=== PATIENT | male | born 1960 | race Two or more races ===

== ENCOUNTER 2024-05-13 14:43 | Emergency (ER) | payer OTHER ==
[~2024-05-13] VITALS: Ht 167.6 cm; Wt 67.7 kg
[2024-05-13] MEDS ORDERED: HYDROcodone-ACET 5/325MG TAB PO ONE (15:30)
[2024-05-13 16:08] LABS: Basophils # (auto) 0 10 ^3/uL (0-0.2); Basophils % (auto) 0.6 % (0.0-2.0); Eosinophils # (auto) 0 10 ^3/uL (0-0.8); Eosinophils % (auto) 0.2 % (0.0-7.0); Hematocrit 43.9 % (41.0-53.0); Hemoglobin 15.3 g/dL (13.5-17.5); Lymphocytes # (auto) 1.6 10 ^3/uL (0.4-5.4); Lymphocytes % (auto) 28.7 % (10.0-50.0); Mean Corpuscular Hemoglobin 30.4 pg (28.0-32.0); Mean Corpuscular Hgb Conc. 34.9 g/dL (32.0-36.0); Mean Corpuscular Volume 87.2 fL (80.0-100.0); Monocytes # (auto) 0.5 10 ^3/uL (0-1.3); Monocytes % (auto) 8.1 % (0.0-12.0); Neutrophils # (auto) 3.5 10 ^3/uL (1.6-8.6); Neutrophils % (auto) 62.4 % (37.0-80.0); Nucleated Red Blood Cells % 0.1 %; Red Blood Cells 5.04 10^6/uL (4.5-5.90); Red Cell Distribution Width 14.8 % (11.8-14.3); White Blood Cell 5.6 10^3/uL (4.4-10.8)
[2024-05-13 16:22] LABS: Chloride 105 mmol/L (98-107); Potassium 3.6 mmol/L (3.5-5.1); Sodium 138 mmol/L (136-145)
[2024-05-13 16:23] LABS: Anion Gap 7 (5-15); Carbon Dioxide 26 mmol/L (20-30)
[2024-05-13 16:28] LABS: BUN/Creatinine Ratio 9.1 (10.0-20.0); Blood Urea Nitrogen 9 mg/dL (9-23); Glucose 97 mg/dL (74-106)
[2024-05-13] MEDS: MECLIZINE HCL 25 MG TAB PO ONE (16:55)
[2024-05-13] MEDS: KETOROLAC TROMETH 30 MG/ML 1ML VIAL IM ONE (16:56)
[2024-05-13] MEDS ORDERED: VALA500T33 PO (17:00)
[2024-05-13] MEDS ORDERED: IBUP-1455 PO (17:00)
[2024-05-13 17:01] VITALS: BP 148/95; PULSE 78; RESP 18; TEMP 98; O2SAT 100
[2024-05-13] MEDS ORDERED: MECL1TAB42 PO (17:03)
[2024-05-13] MEDS ORDERED: ACE3T PO (17:11)
== END 2024-05-13 18:05 | disposition home or self-care (01) ==
LOC: ER 14:43
DX: B02.9 Zoster without complications (principal); R42 Dizziness and giddiness; Z79.899 Other long term (current) drug therapy
CPT/HCPCS: 36415; 80048; 83605; 85025; 93005; 96372; 99284; J1885; J8597

== ENCOUNTER 2024-06-07 07:22 | Emergency (ER) | payer OTHER ==
[~2024-06-07] VITALS: Ht 167.6 cm; Wt 64.0 kg
[~2024-06-07 07:22] MED LIST: ACE3T PO; IBUP-1455 PO; MECL1TAB42 PO; VALA500T33 PO
[2024-06-07 07:48] LABS: Basophils # (auto) 0 10 ^3/uL (0-0.2); Basophils % (auto) 0.5 % (0.0-2.0); Eosinophils # (auto) 0 10 ^3/uL (0-0.8); Eosinophils % (auto) 0.8 % (0.0-7.0); Hemoglobin 14.5 g/dL (13.5-17.5); Monocytes # (auto) 0.3 10 ^3/uL (0-1.3); Nucleated Red Blood Cells % 0.1 %; White Blood Cell 5.1 10^3/uL (4.4-10.8)
[2024-06-07 07:51] LABS: Hematocrit 41.1 % (41.0-53.0); Lymphocytes % (auto) 20.3 % (10.0-50.0); Mean Corpuscular Hemoglobin 31.5 pg (28.0-32.0); Mean Corpuscular Hgb Conc. 35.3 g/dL (32.0-36.0); Mean Corpuscular Volume 89.2 fL (80.0-100.0); Neutrophils # (auto) 3.7 10 ^3/uL (1.6-8.6); Neutrophils % (auto) 72.4 % (37.0-80.0); Red Cell Distribution Width 14.7 % (11.8-14.3)
[2024-06-07 08:21] LABS: Alanine Aminotransferase 33 U/L (7-40); Albumin 4.6 g/dL (3.2-4.8); Alkaline Phosphatase 79 U/L (46-116); Anion Gap 6 (5-15); Aspartate Aminotransferase 27 U/L (13-40); Blood Urea Nitrogen 9 mg/dL (9-23); Carbon Dioxide 27 mmol/L (20-30); Chloride 105 mmol/L (98-107); Glucose 125 mg/dL (74-106); Magnesium 2.2 mg/dL (1.6-2.6); Potassium 3.2 mmol/L (3.5-5.1); Sodium 138 mmol/L (136-145)
[2024-06-07 08:22] LABS: Bilirubin, Total 0.8 mg/dL (0.2-1.0); Total Protein 7.6 g/dL (5.7-8.2)
[2024-06-07] MEDS: LORazepam 2MG/ML-1ML VIAL IV ONE (08:45)
[2024-06-07 08:55] VITALS: PULSE 93; RESP 12; TEMP 97.8; O2SAT 99
[2024-06-07 09:04] LABS: Free T3 3.81 pg/mL (2.3-4.2)
[2024-06-07 09:05] LABS: Free T4 (Free Thyroxine) 1.35 ng/dL (0.89-1.76)
[2024-06-07] MEDS ORDERED: LORA-1121 PO (10:46)
[2024-06-07 10:56] VITALS: BP 124/82; PULSE 93; RESP 20; O2SAT 99
== END 2024-06-07 11:05 | disposition home or self-care (01) ==
LOC: ER 07:22
DX: F41.9 Anxiety disorder, unspecified (principal); E86.0 Dehydration; T42.6X5A Adverse effect of other antiepileptic and sedative-hypnotic drugs, initial encounter; Y92.9 Unspecified place or not applicable
CPT/HCPCS: 36415; 71045; 80053; 83735; 83880; 84439; 84443; 84481; 84484; 85025; 93005; 96374; 99285; J2060

== ENCOUNTER 2024-06-20 09:00 | Emergency (ER) | payer OTHER ==
[~2024-06-20] VITALS: Ht 167.6 cm; Wt 63.0 kg
[~2024-06-20 09:00] MED LIST changes: +LORA-1121 PO
[2024-06-20 10:48] VITALS: BP 142/88; PULSE 88; RESP 18; O2SAT 100
[2024-06-20] MEDS ORDERED: ZOLP12.569 PO (11:04)
== END 2024-06-20 11:10 | disposition home or self-care (01) ==
LOC: ER 09:00
DX: G47.00 Insomnia, unspecified (principal)